=== PATIENT | female | born 1985 | race Caucasian/White ===

== ENCOUNTER 2025-01-24 08:05 | Outpatient (REF) | payer BC, SELFPAY ==
--- NOTE | 2025-01-24 07:42 | SKI_PTH ---
PATIENT: Chula Grewal LOC: [facility] U#:[id number] AGE/SX: 39/F ROOM: RE01/24/[address]: Kennedy Carranza MD : 1985 BED: DIS: 01/24/2025 SPEC #: [id number] RECD: 01/24/25 17:08 STATUS: CARI REAminah #: [id number] LEIGHANN: 01/24/25 07:[address]: Kennedy Carranza DEPT: Surgical Specimen RECD BY: Brooklyn Smith ENTERED: 01/24/25 17:08 SP TYPE: RODOLFO RAMIREZ DR: Laura Olivera Tissues: 1 - SKIN BIOPSY(SHAVE/PUNCH) Procedures: GROSS AND MICRO LEVEL 3 Comments: [id number]
== END 2025-01-24 08:06 | disposition home or self-care (01) ==
LOC: LBN 08:05
PROVIDERS: PCP Registered Nurse; Visit Provider Otolaryngology
DX: L72.9 Follicular cyst of the skin and subcutaneous tissue, unspecified (principal)
CPT/HCPCS: 88304; 88305

== ENCOUNTER 2025-03-21 00:53 | Outpatient (CLI) | payer BC, SELFPAY ==
--- NOTE | 2025-03-21 05:45 | DI.US_ITS ---
Exam(s) US NEEDLE LOCAL OTHER WO RAD EXAM: US NEEDLE LOCAL OTHER WO RAD CLINICAL HISTORY: ultrasound guided biopsy,enlarged lymph node neck,r59.0. COMPARISON: No exams were available for comparison TECHNIQUE: Ultrasound was provided for Dr. Carranza for guidance with performing biopsy of lymph nodes on the left side of the neck. FINDINGS: Please see procedure note for details. DATA REPOSITORY:
--- NOTE | 2025-03-21 11:30 | PAPNONF_PTH ---
PATIENT: Chula Grewal LOC: [facility] U#:[id number] AGE/SX: 39/F ROOM: RE03/21/[address]: Kennedy Carranza MD : 1985 BED: DIS: 03/21/2025 SPEC #: [id number] RECD: 03/21/25 12:58 STATUS: CARI REQ #: [id number] LEIGHANN: 03/21/25 11:[address]: Kennedy Carranza DEPT: [facility] Cytology RECD BY: Brooklyn Smith ENTERED: 03/21/25 12:59 SP TYPE: DONI RAMIREZ DR: Laura Olivera Tissues: 1 - BODY FLUID CYTO-FINE NEEDLE ASPIRATE-[facility] Procedures: BODY FLUID CYTO-FINE NEEDLE ASPIRATE-[facility] Comments: [id number] (PATH FNA CONSULT) (REFRIGERATED)
--- NOTE | 2025-03-21 11:30 | LYM_PTH ---
PATIENT: Chula Grewal LOC: [facility] U#:[id number] AGE/SX: 39/F ROOM: RE03/21/[address]: Kennedy Carranza MD : 1985 BED: DIS: 03/21/2025 SPEC #: [id number] RECD: 03/21/25 12:39 STATUS: CARI REQ #: [id number] LEIGHANN: 03/21/25 11:[address]: Kennedy Carranza DEPT: Surgical Specimen RECD BY: Brooklyn Smith ENTERED: 03/21/25 12:41 SP TYPE: LYM OTHR DR: Laura Olivera Tissues: 1 - FLOW CYTOMETRY NODE/TISSUE Procedures: FLOW CYTOMETRY LYMPHOMA PNL Comments: [id number] (FLOW CYTOMETRY [id number])
--- NOTE | 2025-03-21 11:55 | W.PROCNOTE ---
Date of service: 03/21/25 Time of Service: 11:55 Procedure Note Date of procedure: 03/21/25 Procedure: FNA left posterior triangle lymphadenopathy, pathology present Surgeon/Proceduralist/Physician: Kennedy Carranza Procedure Diagnosis: Posterior lymphadenopathy Procedure Indications: The patient has 2 lymph nodes in the posterior triangle each measuring slightly over 1.5 cm in maximal dimensions that are firm. Options were explained to the patient regarding further management. She elected undergo ultrasound-guided FNA. Risks including bleeding, infection, and need for further treatment or diagnostic studies was discussed at length. Written consent was obtained. The below was then performed. Procedure Description: The patient was positioned in a prone position with her neck slightly extended. Ultrasound was used to localize the lymph nodes in the left neck after the patient was prepped and draped in appropriate fashion. 2% lidocaine with 1/100,000 epinephrine was injected in the skin and subcutaneous tissues overlying the lymph nodes and then a 25-gauge needle was passed into the lymph node and a sample removed. 3 additional passes were made, 2 for flow cytometry and 1 for CytoLyt. Pathology verified that this did appear to be lymphoid tissue. Sample appeared to be excellent. Following biopsy, after ensuring adequate hemostasis, sterile dressing was applied to the site and the patient was allowed to sit, stand, and ambulate. Her vital signs remained stable. She will remove the bandage in a couple of hours and not replace it. She will call with any signs of infection or any concerns. She may use ibuprofen or Tylenol for any discomfort. She will call if she does not hear from me within 1 week with regard to pathology results. Further care will depend upon the findings on pathology
== END 2025-03-21 01:13 ==
LOC: DI 00:53
PROVIDERS: PCP Registered Nurse; Visit Provider Otolaryngology
DX: R59.0 Localized enlarged lymph nodes (principal)
CPT/HCPCS: 10005; 76942; 88104; 88184; 88185